=== PATIENT | male | born 1985 | race Caucasian/White ===

== ENCOUNTER 2017-11-27 07:50 | Emergency (ER) | payer MEDICAID ==
[~2017-11-27] VITALS: Ht 185.4 cm; Wt 171.0 kg
[2017-11-27 07:52] VITALS: BP 168/90
[2017-11-27] MEDS ORDERED: METHOCARBAMOL 750 MG TABLET PO ONE (08:30)
[2017-11-27] MEDS ORDERED: HYDROcodone/APAP 5/325 TABLET PO ONE (08:30)
[2017-11-27] MEDS ORDERED: KETOROLAC 30 MG/1 ML IM ONE (08:30)
[2017-11-27] MEDS ORDERED: ONDANSETRON ODT 4 MG PO ONE (08:30)
[2017-11-27] MEDS ORDERED: METHOCARBAMOL 750 MG TABLET ONE (09:04)
[2017-11-27] MEDS ORDERED: HYDROcodone/APAP 5/325 TABLET ONE (09:04)
[2017-11-27] MEDS ORDERED: KETOROLAC 30 MG/1 ML ONE (09:04)
[2017-11-27] MEDS ORDERED: ONDANSETRON ODT 4 MG ONE (09:05)
== END 2017-11-27 09:30 | disposition home or self-care (01) ==
LOC: ED 09:10
DX: S39.012A Strain of muscle, fascia and tendon of lower back, initial encounter (principal); E66.01 Morbid (severe) obesity due to excess calories; Z68.42 Body mass index [BMI] 45.0-49.9, adult; X58.XXXA Exposure to other specified factors, initial encounter; Y93.61 Activity, american tackle football; Y92.89 Other specified places as the place of occurrence of the external cause; Y99.9 Unspecified external cause status
CPT/HCPCS: 72110; 96372; 99284; J1885; Q0162